=== PATIENT | female | born 1970 | race Caucasian/White ===

== ENCOUNTER → 2019-05-18 08:31 | Outpatient (BNVA) | payer OTHER, SELFPAY | PROVIDERS: Family Provider Registered Nurse; Visit Provider Registered Nurse | DX: R68.89 Other general symptoms and signs (principal); R11.0 Nausea; R51 Headache; T75.3XXA Motion sickness, initial encounter; M25.60 Stiffness of unspecified joint, not elsewhere classified; X58.XXXA Exposure to other specified factors, initial encounter | CPT/HCPCS: 87804 ==

== ENCOUNTER → 2019-11-30 09:11 | Outpatient (BNVA) | payer OTHER, SELFPAY | PROVIDERS: Family Provider Registered Nurse; Visit Provider Specialist | DX: M25.531 Pain in right wrist (principal); G56.01 Carpal tunnel syndrome, right upper limb | CPT/HCPCS: 73110 ==

== ENCOUNTER 2019-11-30 11:20 | Outpatient (CLI) | payer OTHER, SELFPAY | END 2019-11-30 11:21 | disposition home or self-care (01) | LOC: SPT 11:21 | PROVIDERS: Family Provider Registered Nurse; Visit Provider Specialist | DX: Z46.89 Encounter for fitting and adjustment of other specified devices (principal); G56.01 Carpal tunnel syndrome, right upper limb | CPT/HCPCS: 97760; L3908 ==

== ENCOUNTER → 2019-12-23 07:53 | Outpatient (BNVA) | payer OTHER, SELFPAY | PROVIDERS: Family Provider Registered Nurse; Visit Provider Specialist | DX: G56.01 Carpal tunnel syndrome, right upper limb (principal) | CPT/HCPCS: 95908 ==

== ENCOUNTER → 2020-01-17 09:16 | Outpatient (BNVA) | payer OTHER, SELFPAY | PROVIDERS: Family Provider Registered Nurse; Visit Provider Specialist | DX: Z11.59 Encounter for screening for other viral diseases (principal) | CPT/HCPCS: 87635 ==

== ENCOUNTER → 2020-02-02 09:22 | Outpatient (BNVA) | payer OTHER, SELFPAY | PROVIDERS: Family Provider Registered Nurse; PCP Registered Nurse; Visit Provider Specialist | DX: Z11.59 Encounter for screening for other viral diseases (principal); Z20.828 Contact with and (suspected) exposure to other viral communicable diseases; G56.01 Carpal tunnel syndrome, right upper limb | CPT/HCPCS: 87635 ==

== ENCOUNTER 2020-02-10 08:19 | Day surgery (SDC) | payer OTHER, SELFPAY ==
[2020-02-09 08:25] VITALS: BMI 30.2
[2020-02-10] MEDS: sodium chloride 0.9% 1,000 ML 30 ML IV (08:48)
[2020-02-10 08:49] VITALS: BP 124/76; PULSE 79; RESP 18; TEMP 36.8; O2SAT 98
--- NOTE | 2020-02-10 08:50 | P.HPUD_ITS ---
Surgery/Procedure H&P Update DATE OF PROCEDURE: February 10, 2020 DATE H&P PERFORMED: 01/11/20 H&P UPDATE INFORMATION: I have reviewed H&P completed within last 30 days, I have examined patient prior to procedure, No changes to prior documentation and H&P is in [facility] EMR on date indicated PREOP DIAGNOSIS: Right carpal tunnel syndrome PLANNED PROCEDURE: Operation Date: 02/10/20 10:00 Proposed Procedures p Carpal Tunnel Release [id number] G56.00(Right) - Jaida Rincon MD Related Problem List Diagnoses (1) Right carpal tunnel syndrome:
[2020-02-10] MEDS: CELEcoxib 200 mg Capsule 400 MG PO ×2 (08:57)
[2020-02-10] MEDS: scopolamine 1.5 Patch 1 PATCH TRANSDERMA (08:59)
--- NOTE | 2020-02-10 09:08 | ANES.PREANE2 ---
Pre-Anesthetic Assessment Pre-Anesthetic Assessment: Height/Weight: Height 1.57 m Weight 74.843 kg Temp Pulse Resp BP Pulse Ox 98.3 F 79 18 124/76 98 02/10/20 08:49 02/10/20 08:49 02/10/20 08:49 02/10/20 08:49 02/10/20 08:49 Preop Diagnosis: Right carpal tunnel syndrome Proposed Procedure: Operation Date: 02/10/20 10:00 Proposed Procedures p Carpal Tunnel Release [id number] G56.00(Right) - Jaida Rincon MD Familial anesthetic complications: PONV - already has scop patch on Was Beta Herb taken within 24 hours: N/A Last intake: Intake Last Liquid Date 02/09/20 Last Liquid Time 22:00 Last Solid Date 02/09/20 Last Solid Time 22:00 Social: Social History: No alcohol and No tobacco Exam: Pre-Anes Outpt Exam: alert, oriented x 3, clear to auscultation bilaterally and regular rate & rhythm Airway: Cervical ROM: WNL MP: 1 Dentition: Full CV/HEM: CV/HEM: HTN Musc/skel: Musc/skel: Fibromyalgia Comments: dermatopolymyositis Anesthetic Plan: ASA status: 2 Anesthesia: MAC and Regional (specify below) (romi block) Risk of > 500 ml blood loss (7ml/kg in children): No Meds/Allergies Current Medications: Current Medications Generic Name Dose Route Start Last Admin Trade Name Freq PRN Reason Stop Dose Admin Sodium Chloride 1,000 mls @ 30 ml s/hr 02/10/20 08:30 02/10/20 08:48 Sodium Chloride 0.9% IV 02/11/20 08:29 30 mls/hr .Q24H GEETHA Administration PFSH Anesthesia PFSH: Medical History 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
[2020-02-10 10:51] VITALS: BP 122/78; PULSE 77; RESP 16; TEMP 36.2; O2SAT 98
--- NOTE | 2020-02-10 10:51 | ANE.PACU2 ---
Inpatient post-anesthesia follow up: Airway intact: Yes Vital signs: Temperature 98.3 F Pulse Rate 79 Respiratory Rate 18 Blood Pressure 124/76 Pulse Oximetry 98 Oxygen Delivery Me thod Room Air Oxygen Flow Rate Fraction of Inspir ed Oxygen Hydration adequate: Yes Nausea and vomiting: No Pain level: 1 Mental status: Baseline
--- NOTE | 2020-02-10 11:24 | P.OP_ITS ---
Operative Report Date of procedure: February 10, 2020 Pre-op Diagnosis: Right carpal tunnel syndrome Procedure Done: Right carpal tunnel release Specimens removed/disposition: None Pathology: none sent Surgeon: Jaida Rincon Strong Nitric Operator: None Anesthesia: MAC (With Tacho block, ASA 2) Estimated blood loss (mL): 5 Tourniquet time (min): 30 Tourniquet time: At 250 mmHg IV fluids (mL): 300 Urine output (mL): 0 Urine output: No Drummond Complications: None Findings: Significant compression of the median nerve as it passed through the carpal canal Condition: stable Disposition: same day Brief History: This 50-year-old woman presented with symptoms consistent with carpal tunnel syndrome with median nerve compression. After evaluation and discussion, the patient wished to proceed with operative intervention. Risks and complications were discussed with her. Consents were signed preoperatively. Questions were answered. Procedure: The patient was brought to the operating theater. The patient had a Tacho block with MAC. The tourniquet was elevated to 250 mmHg for a total tourniquet time of 30 minutes. The arm was then prepped and draped with DuraPrep in usual fashion with the arm draped free. A surgical pause was performed. At the time, the surgical pause, we confirmed the site and side of surgery. We also confirmed the patient's identity and preoperative surgical markings. An incision was then made along the thenar crease. The incision crossed the wr ist joint in a curvilinear fashion. Dissection continued through skin and soft tissues using a scalpel. The palmaris longus was identified along with the transverse carpal ligament. Each of these was released carefully to avoid injury to the median nerve. We were able to dissect gently into the carpal canal which was noted to be quite tight with significant compression across the median nerve. The nerve was visualized and was an hourglass shape. The canal was subsequently palpated to assure there was no bony encroachment upon the canal. The canal was then palpated distally and proximally to assure that my small finger was passed easily without impingement. Finding this to be so, attention was directed to closure. The wound was irrigated with ropivacaine plain. It was then closed with 3-0 nylon in an interrupted mattress fashion. Sterile dressing was then placed consisting of Xeroform gauze, fluffed fluffs, sterile soft roll, a volar splint, and an Abdoulaye wrap. The tourniquet was released after 30 minutes. There were no complications. There were no specimens. The procedure was well tolerated. Plan is the patient will be discharged home. Associated Problem List Diagnoses (1) Right carpal tunnel syndrome:
== END 2020-02-10 11:54 | disposition home or self-care (01) ==
PROVIDERS: PCP Registered Nurse; Visit Provider Specialist
PROC: (CPT 64721; principal; 2020-02-10 10:00)
DX: G56.01 Carpal tunnel syndrome, right upper limb (principal); I10 Essential (primary) hypertension; M79.7 Fibromyalgia
CPT/HCPCS: 64721; 12345; J0131; J2704; J3010; J3490; J7030

== ENCOUNTER → 2023-04-29 10:41 | Outpatient (BNVA) | payer OTHER, SELFPAY | PROVIDERS: PCP Registered Nurse; Visit Provider Registered Nurse | DX: R11.2 Nausea with vomiting, unspecified (principal); M25.50 Pain in unspecified joint | CPT/HCPCS: 87400; 87426 ==

== ENCOUNTER → 2024-02-01 09:53 | Outpatient (BNVA) | payer OTHER, SELFPAY | PROVIDERS: PCP Registered Nurse; Visit Provider Specialist | DX: M65.332 Trigger finger, left middle finger (principal); Z01.818 Encounter for other preprocedural examination | CPT/HCPCS: 73130; 80053; 81001; 85025; 87086 ==

== ENCOUNTER 2024-02-16 05:50 | Day surgery (SDC) | payer OTHER, SELFPAY ==
--- NOTE | 2024-02-15 16:38 | ANES.PREANE2 ---
Pre-Anesthetic Assessment Height/Weight: Height 5 ft 2 in Preop Diagnosis: Menorrhagia Operation Date: 02/16/24 07:00 Proposed Procedures p LEFT LONG FINGER TRIGGER FINGER RELEASE(Left) - Jaida Rincon MD Was Beta Herb taken within 24 hours: N/A Was Clonidine taken within 24 hours: N/A Social No alcohol and No tobacco Exam alert, oriented x 3, clear to auscultation bilaterally and regular rate & rhythm Airway Submandibular: within normal limits Cervical ROM: within normal limits Mallampati: Class I Dentition: full Anesthetic Plan ASA status: 2 Anesthesia: General Other: No prior issues with anesthesia NPO since yesterday evening Denies any pulmonary or cardiac issues Dermatomyositis, on methotrexate Labs 02/01/2024 reviewed and acceptable for procedure. UA at that time showed 3+ leukocytes. Asymptomatic, no treatment test negative Plan for general anesthesia with LMA Medications/Allergies Home Medications Medication Instructions Recorded Confirmed Last Taken Type cholecalciferol (vitamin D3) 125 125 mcg PO DAILY PRN bone loss 10/23/22 02/15/24 Unknown History mcg (5,000 unit) capsule duloxetine 30 mg capsule,delayed 30 mg PO DAILY 10/23/22 02/08/24 02/15/24 History release methotrexate sodium 2.5 mg tablet 2.5 mg PO DAILY 10/23/22 02/08/24 02/07/24 History estradiol 0.01% (0.1 mg/gram) 1 g vaginal .3 times weekly #42.5 10/24/22 02/08/24 02/08/24 Rx vaginal cream grams Allergies Allergy/AdvReac Type Severity Reaction Status Date / Time No Known Allergies Allergy Verified 02/08/24 11:15 [facility] Anesthesia Medical History No pertinent past medical history neghx: dm,thyroid,dvt/pe PCP: Cat Figueroa Hypertension RESOLVED 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 Performed by Dr. Barroso 1987-->Diagnosed with endometriosis. 2013-->Complex left ovarian cyst. Performed by Dr. Jerrod Shook at [facility] in [place], [place]. Hx of exploratory laparotomy (~2004) RSO-- dermoid cyst performed by [facility] Hx of hysterectomy (~2009) LAVH, USO-- Performed by Dr. Shook at [facility] for AUB. History of tonsillectomy History of carpal tunnel surgery of left wrist History of cholecystectomy Hx of decompression of ulnar nerve left elbow Family History Brother Diabetes Mother Hypertension Father Hypertension Denies family history of Colon cancer Ovarian cancer Heart disease Hyperlipidemia Breast cancer Uterine cancer Thyroid disease Stroke Social History Smoking and tobacco/nicotine status: never used tobacco/nicotine Quit status (tobacco/nicotine): has quit using Year quit tobacco: 2014 Alcohol intake: never Substance/Drug Use: never Adopted: No Caregiver/support person: No Do you think of yourself as: Straight/Heterosexual Current gender identity: Female Data Anesthesia Cardiac Studies: No Data to Display
[2024-02-16] VITALS (10 sets, daily range): BP systolic 118–148; BP diastolic 74–91; PULSE 67–90; RESP 12–22; TEMP 36.2–36.9; O2SAT 96–100; BMI 22.4
[2024-02-16] MEDS: scopolamine 1.5 Patch 1 PATCH TRANSDERMA (06:19)
[2024-02-16] MEDS: acetaminophen 1,000 MG/100 ML PIGGYBACK 400 MG IV (06:47)
[2024-02-16] MEDS: sodium chloride 0.9% 1,000 ML 30 ML IV (06:47)
--- NOTE | 2024-02-16 06:57 | W.PM.OPSUD ---
Surgery/Procedure H&P Update DATE OF PROCEDURE: February 16, 2024 DATE H&P PERFORMED: 02/01/24 H&P UPDATE INFORMATION: I have reviewed H&P completed within last 30 days, I have examined patient prior to procedure, No changes to prior documentation and H&P is in [facility] EMR on date indicated PREOP DIAGNOSIS: Left long finger triggering PLANNED PROCEDURE: Operation Date: 02/16/24 07:00 Proposed Procedures p LEFT LONG FINGER TRIGGER FINGER RELEASE(Left) - Jaida Rincon MD Related Problem List Diagnoses (1) Trigger middle finger of left hand:
[2024-02-16] MEDS: ceFAZolin 2,000 mg SDV 2000 MG IVP (07:07)
[2024-02-16] MEDS: BUPivacaine 0.5% INJ 30 mL XX (07:20)
--- NOTE | 2024-02-16 08:09 | PM.OP ---
Operative Report Date of procedure: February 16, 2024 Pre-op diagnosis: Left long finger triggering Post-op diagnosis: Left long finger triggering Post-op findings: Thickening of the A1 remy and proximal tenosynovium Procedure done: Release left long finger triggering Implants: None Specimens removed/disposition: None Surgeon: Jaida Rincon MD Radar Air Traffic Controller: None Anesthesia: General (Per LMA, ASA 2) Estimated blood loss (mL): 1 Tourniquet time (min): 13 (At 250 mmHg) IV fluids (mL): 800 Urine output (mL): 0 (No Drummond) Complications: None Findings: Intact tendons with significant thickening of the overlying A1 remy and tenosynovium Condition: stable Disposition: PACU (Then to same-day surgery for discharge to home) Brief History: This 54-year-old woman presented to the office complaining of severe triggering over the 4 to 5 months prior to her visit. This was the left long finger, and she had sharp pains in it. She had taken prednisone with some relief. After discussion in the office, plans were made for operative intervention. Risks and complications were discussed with her. Consents were signed and questions were answered. Procedure: Patient was brought to the operating theater. Operation was performed on the rtaylor with a hand table. And general anesthesia per LMA was administered uneventfully. Ancef 2 g was administered prophylactically. A tourniquet was placed high on the arm, and this was elevated after exsanguination. Tourniquet time was 13 minutes at 250 mmHg. Surgical pause was performed prior to commencement of the surgical procedure. At the time of the surgical pause we identified the site and side of surgery. We also identified the patient's identity and appropriate administration of IV antibiotics. Following the surgical pause, an incision was made along the distal palmar crease beneath the long finger. Dissection continued through the skin to the subcutaneous tissues using a scalpel. Blunt dissection was then utilized to spread soft tissues and allow access to the A1 remy. It was then incised longitudinally and sharply using a knife. This was accomplished without difficulty and atraumatically. Once the A1 remy was released, tendons were brought up out of the wound and evaluated. There were no gross masses on the tendons. Tendons were returned to normal position. We then irrigated the wound and subsequently closed it with 3-0 nylon with an interrupted mattress type suture. Following closure of the wound, the wound was injected with bupivacaine into the subcutaneous tissues as a local anesthetic. Sterile dressing was then placed consisting of Dermabond, OpSite, fluffed fluffs sterile soft roll, and an Abdoulaye wrap. The patient was returned to recovery in satisfactory condition. She will be discharged home to follow-up with me in the office. There were no complications and no specimens. Related Problem List Diagnoses (1) Trigger middle finger of left hand:
--- NOTE | 2024-02-16 09:00 | ANE.PACU2 ---
Inpatient post-anesthesia follow up: Airway intact: Yes Vital signs: Temperature 98.4 F Pulse Rate 79 Respiratory Rate 16 Blood Pressure 131/88 Pulse Oximetry 97 Oxygen Delivery Me thod Room Air Oxygen Flow Rate 8 Fraction of Inspir ed Oxygen Hydration adequate: Yes Nausea and vomiting: No Pain level: 1 Mental status: Baseline
== END 2024-02-16 09:00 | disposition home or self-care (01) ==
PROVIDERS: PCP Registered Nurse; Visit Provider Specialist
PROC: (CPT 26055; principal; 2024-02-16 07:00)
DX: M65.332 Trigger finger, left middle finger (principal); I10 Essential (primary) hypertension; M79.7 Fibromyalgia; Z87.891 Personal history of nicotine dependence
CPT/HCPCS: 26055; J0131; J0690; J1100; J2405; J2704; J3010; J3490; J7030